=== PATIENT | male | born 1980 | race Caucasian/White ===

== ENCOUNTER 2019-08-02 09:35 | Emergency (ER) | payer OTHER, SELFPAY ==
--- NOTE | ~2019-08-02 | XR_ITS ---
EXAMINATION: XR chest 2V DATE: 08/02/2019 11:19 INDICATION: Left chest wall pain. TECHNIQUE: Frontal and lateral views of the chest were obtained. COMPARISON: None. FINDINGS: There are mild airspace opacities in the lower lung zones. No pleural effusion or pneumotho rax. The heart size is normal. IMPRESSION: 1. Mild airspace opacities in the lower lung zones, consistent with atelectasis versus pneumonia. Reviewed, dictated and finalized at location A.
--- NOTE | 2019-08-02 09:41 | ED.GENADULT ---
HPI - General Adult General Chief complaint: Chest Pain Stated complaint: FEELS WEIRD AFTER HEROIN OD 2D AGO Time Seen by Provider: 08/02/19 09:40 Source: patient Mode of arrival: ambulatory Limitations: no limitations History of Present Illness HPI narrative: Patient is a 38-year-old male who presents for evaluation of chest wall pain. Patient reports that he overdosed on heroin 2 days ago, was taken to the [facility] emergency department, had CPR performed, and has felt off since that time. Patient signed himself out AGAINST MEDICAL ADVICE from that facility. Patient reports chest wall pain and soreness in his chest. He reports headache, nausea. He denies weakness, he reports myalgias. He denies fever. No vomiting. Patient states he typically uses methamphetamines, but has used heroin recently. Patient denies thoughts of wanting to hurt himself or others. Related Data Home Medications Medication Instructions Recorded Confirmed atorvastatin DAILY 08/02/19 lamotrigine 08/02/19 lamotrigine DAILY 08/02/19 lisinopril DAILY 08/02/19 metformin mg BID 08/02/19 risperidone mg HS 08/02/19 Allergies Allergy/AdvReac Type Severity Reaction Status Date / Time Penicillins Allergy Unknown Unknown Verified 08/02/19 09:58 Review of Systems Review of Systems: Narrative: CONSTITUTIONAL: Denies fever, chills, or sweats. EYES: Denies visual changes, redness, or discharge. ENT: Denies rhinorrhea, congestion, sore throat, or otalgia. CARDIOVASCULAR: Reports chest wall pain, denies palpitations or edema RESPIRATORY: Denies cough or dyspnea. GASTROINTESTINAL: Denies abdominal pain, reports nausea GENITOURINARY: Denies dysuria or hematuria. SKIN: Denies rash or itching. MUSCULOSKELETAL: Denies back pain, joint pain, reports myalgias NEUROLOGIC: Reports headache, denies numbness or weakness PSYCHIATRIC: Reports anxiety and depression [facility] Past Medical History Medical History (Updated 08/02/19 @ 12:08 by Chey Donnelly MD) Heroin abuse Methamphetamine abuse Family History Family History (Updated 09/28/15 @ 23:19 by DOCTOR UNKNOWN) Mother Hypertension Family history of diabetes mellitus in first degree relative Father Family history of malignant neoplasm Family history of heart disease in male family member before age 55 Social History Social History (Updated 08/02/19 @ 10:12 by Chey Donnelly MD) Smoking status: Current every day smoker Alcohol intake: current Substance use: current Substance use type: heroin and amphetamines Gender identity (if verbalized by the patient): Male Exam Narrative: Exam Narrative: GENERAL: Awake, alert, conversant HEAD: Normocephalic, atraumatic. EYES: PERRLA and EOMI. ENT: Nares clear, no rhinorrhea or epistaxis. Mucous membranes moist. NECK: Supple. CHEST: Abrasion in center of chest wall, ecchymosis in center of chest wall, no crepitus no respiratory distress, breathing even and non labored, tender to palpation, exactly reproduces pain HEART: Regular rate, sinus rhythm ABDOMEN:Non distended, non tender EXTREMITIES: Normal range of motion. No edema. SKIN: Warm, dry, no rash. NEURO:No focal deficits. Alert and oriented x3 Course Vital Signs Vital signs: Vital Signs Temperature 36.6 C 08/02/19 09:42 Pulse Rate 74 08/02/19 09:42 Respiratory Rate 14 08/02/19 09:42 Blood Pressure 154/100 H 08/02/19 09:42 Pulse Oximetry 100 08/02/19 09:42 Temperature 36.6 C 08/02/19 09:42 Pulse Rate 74 08/02/19 10:07 Respiratory Rate 20 08/02/19 09:51 Blood Pressure 154/100 H 08/02/19 09:42 Pulse Oximetry 100 08/02/19 09:42 Medical Decision Making MDM Narrative Medical decision making narrative: Patient presented for evaluation feeling unwell since overdose, sounds as if the patient had a cardiac arrest and required CPR. Patient then left AGAINST MEDICAL ADVICE from [facility]. Patient is currently torsten
[2019-08-02 09:42] VITALS: BP 154/100; PULSE 74; RESP 14; TEMP 36.6; O2SAT 100
[2019-08-02 09:51] VITALS: RESP 20
[2019-08-02 10:07] VITALS: PULSE 74
--- NOTE | 2019-08-02 10:09 | ECG_ITS ---
Measurements Intervals [place] Rate: 73 P: 56 [place]: 137 QRS: 2 QRSD: 91 T: 45 QT: 400 QTc: 441 Interpretive Statements SINUS RHYTHM BASELINE ARTIFACT- I, III, V1-V2 NORMAL ECG Electronically Signed On 08-02-2019 11:38:43 CDT by Aron Lee D.O.
[2019-08-02] MEDS: ACETAMINOPHEN 500 MG TABLET 1000 MG PO (10:18)
[2019-08-02] MEDS: ONDANSETRON HCL ODT 4 MG TABLET PO (10:19)
[2019-08-02] MEDS: SODIUM CHLORIDE 0.9% IV 1,000 ML 999 ML IV CONT (10:19)
[2019-08-02 10:49] LABS: Basophils Percent Auto 0.5 % (0.2-1.2); Eosinophils Absolute Auto 0.3 K/mm3 (0-0.3); Eosinophils Percent Auto 4.2 % (0-4.4); Hematocrit 35.3 % (42.0-52.0); Hemoglobin 11.7 g/dL (14.0-18.0); Immature Granulocyte Absolute 0.03 K/mm3 (0.00-0.031); Immature Granulocyte Percent A 0.4 % (0-0.5); Lymphocytes Absolute Auto 2.39 K/mm3 (0.9-3.2); Lymphocytes Percent Auto 31.7 % (18.3-44.2); Mean Corpuscular HGB Conc 33.1 g/dl (32-36); Mean Corpuscular Hemoglobin 31.3 pg (26-34); Mean Corpuscular Volume 94.4 fl (80-100); Mean Platelet Volume 9.1 fl (7.4-10.4); Monocytes Absolute Auto 0.6 K/mm3 (0.1-0.6); Monocytes Percent Auto 8.4 % (2.6-8.5); Neutrophils Absolute Auto 4.1 K/mm3 (1.3-6.7); Neutrophils Percent Auto 54.8 % (45.5-73.1); Platelet Count Result 306 k/mm3 (150-375); Red Blood Count 3.74 M/mm3 (4.6-6.20); Red Cell Distribution Width 13.6 % (11.5-14.5); White Blood Count 7.5 K/mm3 (4.5-10.0)
[2019-08-02 11:00] LABS: Prothrombin Time 12.9 Seconds (11.1-14.7)
[2019-08-02 11:01] LABS: Partial Thromboplastin Time 20.3 SECONDS (22.3-36.8)
[2019-08-02 11:03] LABS: Alanine Aminotransferase 44 U/L (4-50); Albumin Level 3.8 g/dL (3.5-5.1); Alkaline Phosphatase 104 U/L (38-126); Aspartate Amino Transferase 44 U/L (17-59); Bilirubin,Total 0.6 mg/dL (0.2-1.3); Blood Urea Nitrogen 10 mg/dL (9-20); Calcium 8.3 mg/dL (8.4-10.2); Carbon Dioxide 27 mmol/L (22-30); Chloride 107 mmol/L (98-107); Estimated CRCL calculation 129 ml/min; Estimated Glomerular Filt Rate > 60; Glucose 109 mg/dL (75-110); Potassium 4.1 mmol/L (3.4-5.0); Sodium 136 mmol/L (137-145)
[2019-08-02 11:15] LABS: Troponin I < 0.012 ng/mL (0.000-0.034)
[2019-08-02 12:01] LABS: Add Urine Microscopic? YES; Appearance Urine Clear (Clear); Bacteria Urine Trace /hpf; Bilirubin Urine Negative (Negative); Blood Urine Negative (Negative); Color Urine Yellow (Yellow); Glucose Urine UA Negative (Negative); Ketones Urine 1+ mg/dL (Negative); Leukocyte Esterase Ur Negative LEU/UL (Negative); Mucus Urine Few /lpf; Nitrate Urine Negative (Negative); Protein Urine Negative (Negative); RBC Urine 0-2 /hpf (0-2); Specific Grav Ur 1.026 (1.001-1.035); Squamous Epithelial Cell Urine Rare /hpf (Few); Urobilinogen Urine Negative mg/dL (<2.0); WBC Urine 0-3 /hpf
[2019-08-02 12:19] LABS: Barbiturate Screen Urine Negative (Negative); Benzodiazepines Screen Urine Positive (Negative)
[2019-08-02 12:29] LABS: Cannabinoid Screen Urine Negative (Negative); Cocaine Screen Urine Negative (Negative); Methadone Screen Urine Negative (Negative); Opiate Screen Urine Negative (Negative); Phencyclidine Screen Urine Negative (Negative)
[2019-08-02 12:50] LABS: Amphetamine Screen Urine Positive (Negative)
== END 2019-08-02 12:10 | disposition home or self-care (01) ==
PROVIDERS: Emergency Provider Emergency Medicine
DX: R07.89 Other chest pain (principal); F17.200 Nicotine dependence, unspecified, uncomplicated; R91.8 Other nonspecific abnormal finding of lung field; F15.10 Other stimulant abuse, uncomplicated; F11.10 Opioid abuse, uncomplicated; Z79.84 Long term (current) use of oral hypoglycemic drugs
CPT/HCPCS: 36415; 71046; 80053; 80307; 81001; 84484; 85025; 85610; 85730; 93005; 96360; 99284; A9270; J7030